=== PATIENT | male | born 1965 | race Caucasian/White ===

== ENCOUNTER → 2024-01-20 11:16 | Outpatient (CLI) | payer BC, SELFPAY ==
--- NOTE | 2024-01-20 11:22 | DI.MRI.S_ITS ---
PROCEDURE: MR LUMBAR SPINE WO CON INDICATIONS: BACK PAIN TECHNIQUE: Noncontrast sagittal T1 spin echo and T2 fast echo, sagittal STIR, and T2 fast spin echo through the lumbar spine. In cases with scoliosis, additional coronal T2 fast spin echo may be performed. COMPARISON: [facility], MR, MR LUMBAR SPINE WITHOUT CONTRAST, 07/18/2019, 12:52. FINDINGS: Image quality: Excellent. Alignment and Curvature: Trace retrolisthesis at every level. Bone Marrow: Mixed type Modic changes in the endplates at multiple levels, predominantly acute at the L4-5 level and to lesser extent L3-4 along the right aspect, and L1-2. Mild bone edema at both levels extends into the right pedicle. Spinal Cord: Conus medullaris terminates at the L1 level. Visualized cord demonstrates normal signal and size. Paraspinous Soft Tissues: No paravertebral masses. T12-L1: Minor circumferential disc bulge with trace left paracentral annular tear without disc protrusion. Moderate facet arthropathy. L1-L2: Disc desiccation and moderate to severe disc height loss and endplate irregularity. Moderate to large broad-based right foraminal and lateral disc bulge superimposed on moderate circumferential disc bulge. Moderate facet arthropathy. Moderate right foraminal stenosis, stable. L2-L3: Mild disc height loss. Moderate circumferential disc bulge and moderate facet arthropathy. Moderate right and mild left foraminal narrowing, minimally progressed. L3-L4: Disc desiccation and severe disc height loss. Large circumferential disc bulge. Moderate to severe facet hypertrophy. Mild central canal narrowing. Moderate right and severe left foraminal narrowing, stable. L4-L5: Moderate disc height loss. Moderate circumferential disc bulge and moderate facet arthropathy. Moderate right and moderate to severe left foraminal narrowing. L5-S1: Mild facet arthropathy. Minor broad-based posterior disc bulge. Mild bilateral foraminal narrowing. IMPRESSION: Progression of degenerative endplate changes since the prior exam at several levels. Multilevel disc degeneration and disc bulge causing bilateral foraminal stenosis as described. Foraminal stenosis is most severe on the left at L3-4 and L4-5. No significant change compared to prior. Dictated by: Savannah Kemp M.D. on 01/21/2024 at 10:37 Approved by: Savannah Kemp M.D. on 01/21/2024 at 11:09
== END ==
LOC: MRI 11:21
PROVIDERS: Referring Provider Physical Medicine & Rehabilitation; Visit Provider Physical Medicine & Rehabilitation
DX: M51.16 Intervertebral disc disorders with radiculopathy, lumbar region (principal); M48.061 Spinal stenosis, lumbar region without neurogenic claudication; M48.07 Spinal stenosis, lumbosacral region; M47.26 Other spondylosis with radiculopathy, lumbar region; M47.27 Other spondylosis with radiculopathy, lumbosacral region
CPT/HCPCS: 72148